=== PATIENT | female | born 1990 | race Caucasian/White ===

== ENCOUNTER 2017-10-25 21:33 | Emergency (ER) | payer BC ==
[2017-10-25] MEDS: HYDROCODONE/APAP (5/325) TAB PO (22:15)
[2017-10-25 23:00] LABS: ADD MAN DIFF? NO
[2017-10-25 23:03] LABS: WHITE BLOOD COUNT 10.8 10^3/ul (4.8-10.8)
[2017-10-25 23:03] LABS: BASOPHILS % 0.3 % (0.0-2.0); EOSINOPHILS % 0.2 % (0.0-7.0); HEMATOCRIT 41.9 % (37.0-47.0); HEMOGLOBIN 13.5 g/dl (12.0-16.0); LYMPHOCYTES # 2.5 10^3/ul (0.8-2.9); LYMPHOCYTES % 22.8 % (15.0-51.0); MEAN CORPUSCULAR HEMOGLOBIN 27.6 pg (29.0-33.0); MEAN CORPUSCULAR HGB CONC 32.2 g/dl (32.0-37.0); MEAN CORPUSCULAR VOLUME 85.7 fl (82.0-101.0); MEAN PLATELET VOLUME 10.5 fl (7.4-10.4); MONOCYTE # 0.7 10^3/ul (0.3-0.9); MONOCYTES % 6.4 % (0.0-11.0); NEUTROPHIL # 7.6 10^3/ul (1.6-7.5); PLATELET COUNT 245 10^3/UL (140-415); RED BLOOD COUNT 4.89 10^6/ul (4.20-5.40); RED CELL DISTRIBUTION WIDTH 12.9 % (11.5-14.5)
[2017-10-25 23:10] LABS: ADD UMIC YES; UR ASCORBIC ACID NEGATIVE (NEGATIVE); UR BACTERIA FEW /HPF (NONE SEEN); UR BILIRUBIN (Dip) NEGATIVE (NEGATIVE); UR BLOOD (Dip) 2+ mg/dL (NEGATIVE); UR CLARITY CLEAR (CLEAR); UR COLOR COLORLESS (YELLOW); UR GLUCOSE (Dip) NEGATIVE (NEGATIVE); UR KETONES (Dip) NEGATIVE (NEGATIVE); UR LEUKOCYTE ESTERASE (Dip) 2+ Leu/ul (NEGATIVE); UR NITRITE (Dip) NEGATIVE (NEGATIVE); UR RBC 0 /HPF (0-5); UR SPECIFIC GRAVITY (Dip) 1.002 (1.003-1.030); UR TOTAL PROTEIN (Dip) NEGATIVE (NEGATIVE); UR UROBILINOGEN (Dip) NEGATIVE (NEGATIVE); UR WBC 7 /HPF (0-5)
[2017-10-25 23:32] LABS: ALANINE AMINOTRANSFERASE 18 IU/L (13-69); ALBUMIN 4.7 g/dl (3.3-4.9); ALKALINE PHOSPHATASE 73 IU/L (42-121); ANION GAP 16 (8-16); ASPARTATE AMINO TRANSFERASE 23 IU/L (15-46); BILIRUBIN,INDIRECT 0.4 mg/dl (0-1.1); BILIRUBIN,TOTAL 0.4 mg/dl (0.2-1.3); BLOOD UREA NITROGEN 9 mg/dl (7-20); CALCIUM 9.7 mg/dl (8.4-10.2); CARBON DIOXIDE 29 mmol/L (21-31); CHLORIDE 103 mmol/L (97-110); CREATININE 0.68 mg/dl (0.44-1.00); GLUCOSE 92 mg/dl (70-220); LIPASE 72 U/L (23-300); POTASSIUM 3.3 mmol/L (3.5-5.1); SODIUM 145 mmol/L (135-144); TOTAL PROTEIN 8.6 g/dl (6.1-8.1)
[2017-10-26] MEDS: CEFTRIAXONE 1 GM INJ IM (00:11)
[2017-10-26] MEDS: LIDOCAINE 2% (MDV) 20 ML INJ INJ (00:30)
== END 2017-10-26 00:45 | disposition home or self-care (01) ==
LOC: FTE 10-26 00:45
DX: N12 Tubulo-interstitial nephritis, not specified as acute or chronic (principal)
CPT/HCPCS: 36415; 76705; 80053; 81001; 81025; 83690; 85025; 96372; 99285-25

== ENCOUNTER 2017-11-07 21:26 | Emergency (ER) | payer SELFPAY, BC | END 2017-11-07 22:25 | disposition left against medical advice (07) | LOC: E/R 22:25 | DX: Z53.21 Procedure and treatment not carried out due to patient leaving prior to being seen by health care provider (principal) ==